=== PATIENT | male | born 1960 | race Caucasian/White ===

== ENCOUNTER → 2016-12-18 | Day surgery (SDC) | payer MEDICARE, OTHER ==
[~2016-12-18] MED LIST: ALBU6.7H INH; ALTA2.5C4 PO; AMLO2.5T PO; APREPITANT 40 MG CAP ONE; ASPI81TA82 PO; BUPIVACAINE/EPINEPHRINE 0.5% PF 30 ML VIAL ONE; CORE6.25 PO; GABA100C4 PO; HYDR-3535 PO; IMDU30TA PO; KETOROLAC TROMETHAMINE 30 MG/ML (IVP) VIAL IV PUSH ONE; LACTATED RINGER'S 1000 ML INJ 1,000 ML ONE; LYRI50CA2 PO; MIDAZOLAM HCL 2 MG/2 ML VIAL ONE; ONDA4; ONDANSETRON HCL 4 MG/2 ML VIAL IV PUSH ONE; PRAS10TA PO; PROPOFOL 200 MG/20 ML AMP IV ONE; ROSU20 PO; ceFAZolin 2 GM PREMIX 50 ML ONE
--- NOTE | 2016-12-19 10:01 | MP ---
cc: HUSEYIN SHANNON M.D. 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 PROCEDURE Right knee arthroscopic partial medial meniscectomy and gentle chondroplasty medial femoral condyle of delaminated cartilage. ANESTHETIC General. SURGEON Huseyin Shannon MD [employer] SURGEON ESTIMATED BLOOD LOSS Minimum. DRAINS None. SPECIMEN Cartilaginous fragments, discarded. COMPLICATIONS None known. INDICATIONS Abelardo Park is a 66-year-old male with debilitating right knee pain. MRI scan shows a tear involving the posterior horn and body of the medial meniscus as well as chondromalacia in the medial compartment. His symptoms are on the medial joint line. He is developing a small flexion contracture and slight varus as well. The risks, benefits and realistic approach to his condition were discussed. All his questions were answered and a detailed informed consent was obtained. PROCEDURE The patient was brought to the operating room. He was placed under general anesthetic. The right lower extremity was draped and prepped in the usual sterile fashion. IV antibiotics were given, time-out completed. Inferolateral portal was made, a blunt trocar used to introduce the cannula. We noted some small cartilaginous debris within the knee joint. We saw a small amount of chondromalacia in the superior medial aspect of the trochlear groove. The patella looked healthy. Photographed these areas. Photographed the ACL. The lateral compartment appeared normal. The medial compartment showed delaminating cartilage and exposed bone in two vertical stripes with delaminating cartilage to this level and a tear involving the mid-body and posterior horn of the medial meniscus. This was photographed. We proceeded with arthroscopic partial medial meniscectomy using a combination of basket forceps and arthroscopic shaver. Gentle smoothing of the unstable cartilage on the medial femoral condyle was performed and gentle smoothing within the trochlear groove performed and a follow-up photograph taken here. We switched over a switching stick and came in with the shaver from the lateral portal to help with the transition from the anterior horn to the body and posterior horn and fine-tuned from this level and then switched back again and just fine-tuned the medial femoral condyle and did this in multiple degrees of flexion. It was a very large area of delaminating cartilage. Follow-up photograph shows the final result. Repeat diagnostic arthroscopy revealed no loose bodies. The arthroscopic equipment was removed. [place] was injected about the portals, Steri-Strips applied. Sterile dressing applied. The patient was awoken and returned to the recovery room in stable condition. MD ASHELY Denny/ADIEL /10:48 AM /9:53 AM
== END | disposition home or self-care (01) ==
LOC: ESDC 06:23
PROVIDERS: ATTEND Orthopaedic Surgery Sports Medicine
DX: S83.241A Other tear of medial meniscus, current injury, right knee, initial encounter (principal); M94.261 Chondromalacia, right knee
CPT/HCPCS: 01400; 29881; J0690; J1885; J2250; J2405; J3010; J7120; J8501